=== PATIENT | female | born 1970 | race Caucasian/White ===

== ENCOUNTER → 2023-09-05 | Emergency (ER) | payer OTHER ==
[~2023-09-05] VITALS: Ht 175.3 cm; Wt 72.6 kg
[~2023-09-05] MED LIST: CLIN300C12 PO; CLINDAMYCIN HCL 150 MG CAPSULE ONE; KETOROLAC TROMETHAMINE INJ 30 MG/ML VIAL ONE; dexaMETHasone SOD PHOSPHATE 1 ML ONE
[2023-09-05 07:34] VITALS: BP 140/76; TEMP 98.1
[2023-09-05] MEDS: CLINDAMYCIN HCL 150 MG CAPSULE PO ONE (09:09)
[2023-09-05] MEDS: KETOROLAC TROMETHAMINE INJ 60 MG/2 ML VIAL IM ONE (09:09)
[2023-09-05] MEDS: dexaMETHasone SOD PHOSPHATE 10 MG/ML VIAL IM ONE (09:09)
[2023-09-05 09:36] VITALS: O2SAT 97
== END | disposition home or self-care (01) ==
LOC: ER 07:27
DX: J02.9 Acute pharyngitis, unspecified (principal)
CPT/HCPCS: 99284; 96372 ×2; J1100; J1885